=== PATIENT | male | born 2000 | race Caucasian/White ===

== ENCOUNTER 2025-07-13 16:43 | Emergency (ER) | payer MEDICAID, SELFPAY ==
[2025-07-13 16:47] VITALS: BP 134/95; PULSE 89; TEMP 37; O2SAT 100; BMI 21.1
--- NOTE | 2025-07-13 16:56 | XR_ITS ---
The [address] [address] Patient Name: LELIA BANSAL MRN: [id number] date: 2000 Sex: M Assigned Patient Location: ER Current Patient Location: Accession/Order Number: [id number] Exam Date: 07/13/2025 17:00 Report Date: 07/13/2025 17:56 At the request of: NEVAEH MULLEN Procedure: XR foot LT min 3V 3 views left foot plain film COMPARISON:None HISTORY: Left foot pain. Redness. ACUTE FINDINGS: None DEGENERATIVE CHANGE: Unremarkable SOFT TISSUE FINDINGS: Unremarkable JOINT EFFUSION: None POSTOP CHANGES: None BONE MINERALIZATION: Adequate XR/XR foot LT min 3V IMPRESSION: No acute findings. Impression dictated by: Fredi Kaiser M.D. 07/13/2025 5:56 PM Dictation Location: [place] [address] Electronically authenticated by: [id number] Y Date: 07/13/2025 17:56
--- NOTE | 2025-07-13 16:57 | ED.GENADUL1 ---
HPI HPI - General Adult General Chief complaint: Extremity Problem, Nontraumatic Stated complaint: Left foot pain Time Seen by Provider: 07/13/25 16:46 Source: patient Mode of arrival: walk-in Limitations: no limitations History of Present Illness HPI narrative: Patient presents with left foot pain and redness Notes the bottom of his foot became painful today. He notes that he has athlete's foot Notes his feet are always wet when he is at work because he wears waterproof boots his feet sweat he does try to change his socks. Patient denies any known injury denies any fever, chills, nausea, vomiting denies any urinary symptoms. Patient vapes but does not smoke symptoms are mild to moderate severity worse with touch or motion nothing improves symptoms. Patient concerned about possible spider bite . Onset (ago): day(s) Location: Reports lower extremity Related Data Previous Rx's ?Medication ?Instructions ?Recorded cephalexin 500 mg capsule 500 mg PO QID 7 days #28 caps 07/13/25 Allergies Allergy/AdvReac Type Severity Reaction Status Date / Time No Known Drug Allergies Allergy Verified 07/13/25 16:53 Review of Systems ROS Status of ROS 10 or more systems reviewed and unremarkable except as noted in history and below Constitutional Denies: fever or chills Eyes Denies: change in vision Ears, nose, mouth, and throat Denies: difficulty swallowing Cardiovascular Denies: chest pain Respiratory Denies: shortness of breath or cough Gastrointestinal Denies: abdominal pain Genitourinary Denies: blood in urine Musculoskeletal Reports: joint pain (lt foot); Denies: back pain Integumentary/Breast Reports: redness Neurological Denies: headache Psychiatric Denies: anxiety Endocrine Denies: fatigue Allergic/Immunologic Denies: hives PFSH PFSH Social History Little interest or pleasure in doing things: not at all Feeling down, depressed, or hopeless: not at all Exam Narrative Exam Narrative: Presents with left foot redness and pain that started today. Constitutional Vital Signs, click to edit/add: Last Vital Signs Temp 98.6 F 07/13/25 16:47 Pulse 89 07/13/25 16:47 Resp 18 07/13/25 16:47 BP 134/95 H 07/13/25 16:47 Pulse Ox 100 07/13/25 16:47 O2 Del Method Room Air 07/13/25 16:47 Documenting provider has reviewed patient's vital signs: yes Common normals: no apparent distress, oriented x3 and no limitations Nutritional appearance: not cachectic HENMT Common normals: normocephalic and hearing grossly normal bilaterally Nose: external nose normal General ear: hearing not grossly impaired External ear: external ears normal External auditory canal: EACs normal Tympanic membrane: TMs normal bilaterally Mouth: oral and palatal mucosa normal Eye Common normals: PERRL Neck & C-Spine Common normals: full ROM and supple Respiratory Common normals: normal respiratory effort and clear to auscultation bilaterally Cardio Common normals: regular rate, regular rhythm, S1 normal heart sound, S2 normal heart sound and peripheral pulses 2+ throughout GI Common normals: Normal to inspection, nondistended, normoactive bowel sounds present Back & Pelvis Common normals: thoraco-lumbar ROM normal Extremity Common normals: full ROM General: normal exam except as noted Left lower extremity: foot and digits (Left plantar surface and foot small 3 mm raised lesion surrounding erythema) Other: Interdigital discoloration noted negative bleeding Neuro Common normals: oriented x3 Psych Common normals: mental status grossly normal, thought process normal and cooperative Course Vital Signs Vital signs: Vital Signs Temperature 98.6 F 07/13/25 16:47 Pulse Rate 89 07/13/25 16:47 Respiratory Rate 18 07/13/25 16:47 Blood Pressure 134/95 H 07/13/25 16:47 Pulse Oximetry 100 07/13/25 16:47 Oxygen Delivery Method Room Air 07/13/25 16:47 Temperature 98.6 F 07/13/25 16:47 Pulse Rate 89 07/13/25 16:47 Respiratory Rate 18 07/13/25 16:47 Blood Pressure 134/95 H 07/13/25 16:47 Pulse Oximetry 100 07/13/25 16:47 Oxygen Delivery Method Room Air 07/13/25 16:47 Medical Decision Making [facility] Narrative Medical decision making narrative: Patient has redness and pain bottom of foot. Denies any additional symptoms. Patient denies any injuries. With history of wet feet we discussed he needs to change socks more often apply drying powder such as Desenex or Lamisil. Patient retains sensation and full range of motion to toes. For fungal coverage again we recommended drying powder such as Desenex and Lamisil. Consider cornstarch change socks as often as possible. We will also treat for cellulitis with Keflex 500mg 4 times daily. Will add x-ray of foot to rule out any foreign body. Discussed plan of care with patient is agreeable plan of care. Differential Diagnosis Differential Diagnosis: Cellulitis, plantars wart, dermatitis. Imaging Data Foot: Attestation: I personally reviewed and interpreted this imaging study as follows: My impression: Negative foreign body negative fracture see final radiology report Discharge Plan Discharge Chief Complaint: Extremity Problem, Nontraumatic Clinical Impression: Cellulitis, Athlete's foot on left Patient Disposition: Home, Self-Care Time of Disposition Decision: 17:20 Mode of Transportation: Private Vehicle Prescriptions / Home Meds: New cephalexin 500 mg capsule 500 mg PO QID 7 Days Qty: 28 0RF Print Language: Burkinan Instructions: Cellulitis (ED), Skin Yeast Infection (ED) Additional Instructions: Follow-up with primary care physician. Return to ER if any symptoms worsen or new symptoms develop. Change socks as often as possible while working try and keep feet dry. Consider using gauze between toes. Use drying/antifungal powder such as Desenex or Lamisil as directed on packaging. Referrals: [facility] [Other] - As needed Cornelius Chirinos MD [Primary Care Provider, Family Practice] - 1 week
== END 2025-07-13 17:29 | disposition home or self-care (01) ==
PROVIDERS: Emergency Provider Emergency Medicine; PCP Family Medicine
DX: B35.3 Tinea pedis (principal); L03.116 Cellulitis of left lower limb; F17.290 Nicotine dependence, other tobacco product, uncomplicated
CPT/HCPCS: 73630; 99283